=== PATIENT | female | born 1965 | race Caucasian/White ===

== ENCOUNTER 2024-07-25 06:56 | Outpatient (CLI) | payer BC, SELFPAY ==
--- NOTE | 2024-07-25 | MR_ITS ---
EXAM: MRI of the RIGHT KNEE, without contrast CLINICAL INFORMATION: Female, 58 years old, with knee pain, twisting injury walking on AP INDICATION: Knee pain PRIOR SURGERY: History of prior surgery, date unspecified. PLAIN FILMS: Multiple prior radiographs, most recently 07/19/2024. COMPARISONS: No prior MRIs available. TECHNICAL INFORMATION: Using a 1.5T MR scanner and a localizing surface coil: sagittals: PD, STIR coronals: PD, STIR axials: PD, STIR SEDATION: None CONTRAST: None FINDINGS: Knee joint: Effusion: Small sized right knee effusion. Popliteal cyst: None. Loose bodies: None. Subcutaneous and extra-articular soft tissues: Unremarkable. Ligaments: ACL: The mid distal ACL is thickened with increased soft tissue signal anterior to the ligament within the intercondylar notch. No transverse fiber disruption. PCL: Intact PCL, without acute or chronic injury. MCL: Intact MCL superficial and deep layers, without injury. LCL: Intact LCL, without injury. Posterolateral corner: No posterolateral corner soft tissue injury. Popliteus, biceps femoris, iliotibial band, popliteofibular ligament and lateral gastrocnemius are intact. Posteromedial corner: No posteromedial corner soft tissue injury. Semimembranosus, pes anserine tendons and posterior oblique ligament are without injury, tendinopathy or bursitis. Extensor mechanism: Patellar tendon: Intact, without tendinopathy. Quadriceps tendon: Intact, without tendinopathy. Retinacula: Medial and lateral retinacula are intact. Fat pads: Unremarkable infrapatellar Hoffa's, quadriceps and prefemoral fat pads. Medial compartment: Medial meniscus: No articular surface, meniscosynovial junction or root tear. No displacement, extrusion or parameniscal cyst. Medial femoral condyle: No chondromalacia or osteochondral abnormality. Medial tibial plateau: No chondromalacia or osteochondral abnormality. Lateral compartment: Lateral meniscus: There is horizontal undersurface tearing along the anterior horn of the lateral meniscus (sagittal series 6 image 10). A small ganglion is present at the level of the anterior root measuring approximately 1.0 x 0.7 cm. Lateral femoral condyle: Grade 2 chondral thinning along the central to anterior weightbearing lateral femoral condyle. Lateral tibial plateau: There is chondral heterogeneity along the central lateral tibial plateau without focal chondral defect. Patellofemoral joint: Patella: There is diffuse grade II/III chondral thinning of the anterior most margin of the lateral patellar facet. Full-thickness fissuring is noted involving the mid central median ridge measuring 0.6 x 0.6 cm. Additional grade 2 chondral thinning of the mid medial patellar facet with a small region of chondral delamination measuring 6 mm. Mild cystic changes seen involving the superior medial patellar facet. Trochlea: Diffuse grade 2 chondral thinning of the lateral trochlear articular cartilage. Proximal tibiofibular joint: Unremarkable, without evidence of ligament sprain injury, joint effusion or adjacent marrow edema. Bones: Postoperative changes of the lateral tibial plateau with partially threaded screw fixation as well as graft material. There is mild subchondral bone plate irregularity involving the central aspect of the lateral tibial plateau with mild osseous spurring anteriorly, likely posttraumatic, without evidence for persistent discrete fracture line. Marrow signal hyperintensity involving the inferior and lateral patella extending to the subarticular surface, without discrete fracture line. IMPRESSION: 1. Marrow signal hyperintensity in the lateral patellar facet inferiorly may reflect osseous contusion given history of trauma. No discrete fracture line. 2. Horizontal undersurface tearing along the anterior horn of the lateral meniscus. Small ganglion at the level of the anterior root measures 1.0 x 0.7 cm. 3. Grade 2 and grade 3 chondral thinning of the patellofemoral compartment articular cartilage, please see description above. 4. No medial meniscus tear. Medial compartment articular cartilage is intact. 5. Thickening of the ACL with increased appearance of soft tissue along the ligament within the intercondylar notch may suggest fibrosis/sequelae of chronic sprain injury. No acute cruciate or collateral ligament pathology. 6. Postoperative appearance of the lateral tibial plateau , without persistent marrow edema or discrete fracture line. 7. Small knee joint effusion. KME Electronically signed on 07/25/2024 4:33:00 PM by Nathalia Bhandari M.D.
== END 2024-07-25 06:57 | disposition home or self-care (01) ==
LOC: MRI 06:57
PROVIDERS: Visit Provider Orthopaedic Surgery
DX: M25.561 Pain in right knee (principal); S83.281A Other tear of lateral meniscus, current injury, right knee, initial encounter; M25.461 Effusion, right knee
CPT/HCPCS: 73721

== ENCOUNTER 2024-09-19 06:37 | Day surgery (SDC) | payer BC, SELFPAY ==
[2024-09-19] VITALS (12 sets, daily range): BP systolic 105–146; BP diastolic 7–81; PULSE 52–71; RESP 15–16; TEMP 36–36.7; O2SAT 94–100; BMI 23.1
[2024-09-19] MEDS: SODIUM CHLORIDE 0.9 % (FLUSH) 10 ML SYRINGE IVF (07:00)
[2024-09-19] MEDS: LACTATED RINGERS 1000 ML 1,000 ML 100 ML IV (07:00)
[2024-09-19] MEDS: CEFAZOLIN 1 GM inj IVP (08:35)
[2024-09-19] MEDS: LACTATED RINGERS 1000 ML 1,000 ML 125 ML IV (08:43)
[2024-09-19] MEDS: BUPIVACAINE 0.25% 30 ML INJECTION (09:52)
--- NOTE | 2024-09-19 09:58 | P.ORPRC_ITS ---
Procedure Note Date of procedure: 09/19/24 Procedure: PREOPERATIVE DIAGNOSIS: Right knee lateral meniscus tear, lateral parameniscal cyst, retained hardware deep POSTOPERATIVE DIAGNOSIS: Right knee lateral meniscus tear, lateral parameniscal cyst, retained hardware deep NAME OF OPERATION: Right knee arthroscopic partial lateral meniscectomy, parameniscal cyst excision, hardware removal deep SURGEON: Louis Sosa MD SOFTWARE QA SYSTEM SPECIALIST: YOANNA Armstrong ANESTHESIA: Spinal ESTIMATED BLOOD LOSS: 2 mL COMPLICATIONS: None SPECIMENS: None DRAINS: None PREOPERATIVE ANTIBIOTICS: Ancef 1 gram INDICATIONS: The patient is a 58-year-old with a history of right knee lateral tibial plateau fracture ORIF. She has done well until more recently and developed lateral pain. MRI scan is consistent with a lateral meniscus tear. The screw heads have been symptomatic since her plateau fracture. Despite appropriate nonoperative management, including activity modification, antiinflammatories, [id number] pain medication, bracing, physical therapy, and injections they continue to have pain and disability. Operative intervention was offered. The risks, benefits and expected outcomes were discussed in detail. These included but were not limited to: Infection, bleeding, injury to blood vessel or nerve, venous thromboembolism. All questions were answered to their satisfaction. Provider Operated C-arm: C-arm fluoroscopy operated by Louis Sosa MD for hardware removal deep. Nine C-arm spot images were obtained. Fluoroscopy time was 8 seconds. PROCEDURE: Spinal anesthesia was administered. The patient was placed supine on the operating room table. The right lower extremity was prepped and draped in the usual sterile fashion. The limb was exsanguinated with the Sadi bandage. The pneumatic tourniquet was inflated to 225 mmHg. The previously placed anterolateral portal was established. The arthroscope was introduced. The previously placed working portal was established anteromedially. Diagnostic arthroscopy was performed with findings as follows: The suprapatellar pouch is normal. Articular surface on the patella diffuse grade 1/2 change. Articular surface on the trochlea diffuse grade 1 change. The medial gutter is normal. The medial compartment shows focal grade 2/3 change on the lateral femoral condyle, diffuse grade 1/2 change on the lateral tibial plateau. The medial meniscus is normal. The notch shows the ACL to be intact. The lateral compartment shows diffuse grade 1/2 change on the lateral femoral condyle, diffuse grade 2/3 change on the lateral tibial plateau, without grade 4 change. The lateral meniscus has some degenerative fraying of the anterior horn. There is a parameniscal cyst just off of the anterior horn attachment to the anterior tibia and anterior insertion of the ACL. The lateral gutter is normal. The anterior horn of the lateral meniscus was debrided with the shaver. Likewise, the parameniscal cyst was resected. Unstable chondral flaps on the lateral tibial plateau and medial femoral condyle were debrided with the shaver. Attention was then turned to the hardware removal. The 4 stab incisions over the lateral tibial plateau were utilized. Blunt dissection was carried to each screw head which was removed intact. We then back filled each screw tract with 8 mL of Arthrex Bonesync injectable bone graft substitute. The lateral stab incisions were closed with a 3-0 Vicryl. The portal sites were Steri-Stripped closed, the knee and lateral skin were infiltrated with 30 mL of 0.25% Marcaine without epinephrine. A dry dressing was applied, the tourniquet was released. Sponge and needle counts were correct x 2. Intraoperative C-arm images show the hardware has been completely removed. The patient tolerated the procedure well. There were no apparent complications. They were carefully transferred to the hospital bed and taken to the postanesthesia care unit in satisfactory condition. PLAN: The patient will be discharged to home. They may weightbear as tolera conrad. Range of motion will be unrestricted. They will follow up in the office next week for a wound check.
--- NOTE | 2024-09-19 10:07 | P.ANES_ITS ---
Anesthesia Charges Start Date/Time Anesthesia Start Date: 09/19/24 Anesthesia Start Time: 08:16 Stop Date/Time Anesthesia Stop Date: 09/19/24 Anesthesia Stop Time: 10:06 Coding CPT Codes CPT Codes: ANESTH KNEE JOINT SURGERY - 34605 ([id number]) P2 - PATIENT W/MILD SYST DISEASE, QZ - SAP DEVELOPER SVC W/O PURIFICATION SUPERVISOR BY
--- NOTE | 2024-09-19 10:07 | W.ANESCHARGE ---
Anesthesia Charges Start Date/Time Anesthesia Start Date: 09/19/24 Anesthesia Start Time: 08:16 Stop Date/Time Anesthesia Stop Date: 09/19/24 Anesthesia Stop Time: 10:06 Coding CPT Codes CPT Codes: ANESTH KNEE JOINT SURGERY - 33319 ([id number]) P2 - PATIENT W/MILD SYST DISEASE, QZ - BEEF RIBBER SVC W/O BATCH ANALYST BY
[2024-09-19] MEDS: fentaNYL 100 MCG/2 ML inj 50 MCG IVP (10:23)
[2024-09-19] MEDS: OXYCODONE 5 MG TABLET PO (11:15)
[2024-09-19] MEDS: KETOROLAC 30 MG/ML inj IVP (11:35)
== END 2024-09-19 12:10 | disposition home or self-care (01) ==
PROVIDERS: PCP Family Medicine; Visit Provider Orthopaedic Surgery
PROC: (CPT 29882; principal; 2024-09-19 08:00)
DX: S83.281A Other tear of lateral meniscus, current injury, right knee, initial encounter (principal); M23.061 Cystic meniscus, other lateral meniscus, right knee; M17.11 Unilateral primary osteoarthritis, right knee; Z47.2 Encounter for removal of internal fixation device
CPT/HCPCS: 29881; 20680; 01400; 73560; 76000; A9270; C1713; J0665; J0690; J1100; J1885; J2250; J2405; J2704; J3010; J7120

== ENCOUNTER 2024-10-05 06:50 | Day surgery (SDC) | payer BC, SELFPAY ==
[2024-10-05] VITALS (11 sets, daily range): BP systolic 110–152; BP diastolic 65–77; PULSE 56–73; RESP 14–16; TEMP 36.2–37.1; O2SAT 95–99
[2024-10-05] MEDS: LACTATED RINGERS 1000 ML 1,000 ML 100 ML IV (07:44)
[2024-10-05] MEDS: SODIUM CHLORIDE 0.9 % (FLUSH) 10 ML SYRINGE IVF (07:44)
[2024-10-05] MEDS: CEFAZOLIN 1 GM inj IVP (08:44)
--- NOTE | 2024-10-05 09:08 | P.ANES_ITS ---
Anesthesia Charges Start Date/Time Anesthesia Start Date: 10/05/24 Anesthesia Start Time: 08:27 Stop Date/Time Anesthesia Stop Date: 10/05/24 Anesthesia Stop Time: 10:05 Coding CPT Codes CPT Codes: ANESTH KNEE AREA SURGERY - 23079 ([id number]) P2 - PATIENT W/MILD SYST DISEASE, QK - DIABETES TERRITORY MANAGER 2-4 CNCRNT ANES PROC, QX - BREWERY PUMPER SVC W/ MD MED DIRECTION
--- NOTE | 2024-10-05 09:08 | W.ANESCHARGE ---
Anesthesia Charges Start Date/Time Anesthesia Start Date: 10/05/24 Anesthesia Start Time: 08:27 Stop Date/Time Anesthesia Stop Date: 10/05/24 Anesthesia Stop Time: 10:05 Coding CPT Codes CPT Codes: ANESTH KNEE AREA SURGERY - 95469 ([id number]) P2 - PATIENT W/MILD SYST DISEASE, QK - REFINERY OPERATOR VAPOR RECOVERY UNIT 2-4 CNCRNT ANES PROC, QX - HORTICULTURAL MANAGER SVC W/ MD MED DIRECTION
--- NOTE | 2024-10-05 09:11 | P.ANES_ITS ---
Anesthesia Charges Start Date/Time Anesthesia Start Date: 10/05/24 Anesthesia Start Time: 08:27 Stop Date/Time Anesthesia Stop Date: 10/05/24 Anesthesia Stop Time: 10:05 Coding CPT Codes CPT Codes: ANESTH KNEE AREA SURGERY - 32076 ([id number]) P2 - PATIENT W/MILD SYST DISEASE, QK - PRODUCT MANAGEMENT SPECIALIST 2-4 CNCRNT ANES PROC, QX - CARDER BLANKETS SVC W/ MD MED DIRECTION
--- NOTE | 2024-10-05 09:11 | W.ANESCHARGE ---
Anesthesia Charges Start Date/Time Anesthesia Start Date: 10/05/24 Anesthesia Start Time: 08:27 Stop Date/Time Anesthesia Stop Date: 10/05/24 Anesthesia Stop Time: 10:05 Coding CPT Codes CPT Codes: ANESTH KNEE AREA SURGERY - 01313 ([id number]) P2 - PATIENT W/MILD SYST DISEASE, QK - CHIEF SUBSTATION OPERATOR 2-4 CNCRNT ANES PROC, QX - CHILDREN LIBRARIAN SVC W/ MD MED DIRECTION
[2024-10-05] MEDS: BUPIVACAINE 0.5% 30 ML INJECTION (09:45)
--- NOTE | 2024-10-05 09:52 | P.ORPRC_ITS ---
Procedure Note Date of procedure: 10/05/24 Procedure: PREOPERATIVE DIAGNOSIS: Right knee symptomatic extruded bone graft POSTOPERATIVE DIAGNOSIS: Right knee symptomatic extruded bone graft NAME OF OPERATION: Open excision right knee extruded bone graft SURGEON: Louis Sosa MD BUILDING SUPPLIES SALESPERSON RETAIL: YOANNA Armstrong ANESTHESIA: Spinal ESTIMATED BLOOD LOSS: 0 mL COMPLICATIONS: None SPECIMENS: None DRAINS: None PREOPERATIVE ANTIBIOTICS: Ancef 1 gram INDICATIONS: The patient is a 58-year-old who last week underwent right knee cannulated screw removal. At the time of surgery, we injected bone graft substitute into the screw tracts. Some of the graft extruded out of the back of the knee and has caused extreme posterior pain. Therefore, we elected to take her back to the operating room today to excise the extruded bone graft. The risks, benefits and expected outcomes were discussed in detail. These included but were not limited to: Infection, bleeding, injury to blood vessel or nerve, venous thromboembolism. All questions were answered to their satisfaction. Provider Operated C-arm: C-arm fluoroscopy operated by Louis Sosa MD for localizing extruded bone graft. Twenty-six C-arm spot images were obtained. Fluoroscopy time was 26 seconds. PROCEDURE: Spinal anesthesia was administered. The patient was placed supine on the operating room table. The right lower extremity was prepped and draped in the usual sterile fashion. The limb was exsanguinated with the Sadi bandage. The pneumatic tourniquet was inflated to 225 mmHg. We identified the location of the extruded bone graft with the image intensifier. A longitudinal incision was made over the medial aspect of the knee, just distal to the joint line. Subcutaneous dissection was taken with tenotomy scissors to the deep fascia. This was divided in line with the incision. The hamstrings were retracted posteriorly. The gastrocnemius was retracted posteriorly. We encountered a small amount of liquid bone graft. We then encountered several large fragments which were excised with the pituitary rongeur. We then copiously irrigated the wound until there were no tiny fragments of bone graft collected in the kidney basin. The wound was infiltrated with 0.5% Marcaine, without epinephrine. It was closed with a 3-0 Vicryl deep, 4-0 Monocryl in a subcuticular fashion. A simple dressing was applied. The image intensifier was used in multiple planes to confirm that all of the bone graft has been excised. Sponge and needle counts were correct x 2. The patient tolerated the procedure well. There were no apparent complications. They were carefully transferred to the hospital bed and taken to the postanesthesia care unit in satisfactory condition. PLAN: The patient will be discharged to home. They may weightbear as tolerates. Range of motion will be unrestricted. They will follow up in the office next week for a wound check.
[2024-10-05] MEDS: IBUPROFEN 400 MG TABLET PO (11:38)
== END 2024-10-05 11:45 | disposition home or self-care (01) ==
PROVIDERS: PCP Family Medicine; Visit Provider Orthopaedic Surgery
PROC: (CPT 27310; principal; 2024-10-05 08:45)
DX: T84.328A Displacement of other bone devices, implants and grafts, initial encounter (principal); M25.561 Pain in right knee
CPT/HCPCS: 27310; 01392; 01400; 73562; A9270; J0665; J0690; J1100; J2250; J2405; J2704; J3010; J7120

== ENCOUNTER 2024-12-19 13:45 | Outpatient (RCR) | payer BC, SELFPAY | END 2025-03-16 08:43 | disposition home or self-care (01) | PROVIDERS: PCP Family Medicine; Visit Provider Orthopaedic Surgery | DX: Z48.89 Encounter for other specified surgical aftercare (principal); Z87.828 Personal history of other (healed) physical injury and trauma; M62.89 Other specified disorders of muscle; M25.561 Pain in right knee; Z51.89 Encounter for other specified aftercare | CPT/HCPCS: 97110; 97112; 97140; 97162 ==